=== PATIENT | male | born 1990 | race American Indian/Alaskan Native ===

== ENCOUNTER 2018-12-12 11:03 | Emergency (ER) | payer MEDICAID, OTHER ==
[2018-12-12 11:12] VITALS: BMI 29.8
[2018-12-12 11:15] VITALS: BP 121/78; PULSE 81; RESP 18; TEMP 98; O2SAT 96
[2018-12-12] MEDS ORDERED: cefTRIAXone (Rocephin) 250 mg Inj IM STA (11:30)
--- NOTE | 2018-12-12 11:34 | ED PDOC ---
Arrival/HPI - General Historian: Patient - History of Present Illness Narrative History of Present Illness (Text): 12/12/18 11:35 28-year-old male presents today with penile discharge that started this morning. Patient states he woke up and he noticed a white discharge coming from the penis. He denies testicular pain. Denies fevers or chills. No dizziness or weakness. No abdominal pain. No nausea or vomiting. Patient states she has a history of STD in the past. Patient states he has a new sexual partner and states that the condom broke. Patient denies urinary frequency or dysuria. No other complaints <Svetlana Hercules - Last Filed: 12/12/18 17:00> <Malik Bermudez - Last Filed: 12/12/18 17:21> - General Chief Complaint: Male Genitourinary Time Seen by Provider: 12/12/18 11:05 Past Medical History - Provider Review Nursing Documentation Reviewed: Yes - Travel History Have you recently traveled outside [place] w/in the past 3 mons?: No - Infectious Disease Hx of Infectious Diseases: None - Psychiatric Hx Substance Use: Yes - Anesthesia Hx Anesthesia: No Hx Anesthesia Reactions: No Hx Malignant Hyperthermia: No <Svetlana Hercules - Last Filed: 12/12/18 17:00> Family/Social History - Physician Review Nursing Documentation Reviewed: Yes Family/Social History: Unknown Family HX Smoking Status: Heavy Smoker > 10 Cigarettes Daily Hx Alcohol Use: Yes Frequency of alcohol use: Socially Hx Substance Use: Yes Substance used: marijuana <Svetlana Hercules - Last Filed: 12/12/18 17:00> Allergies/Home Meds <Svetlana Hercules - Last Filed: 12/12/18 17:00> <Malik Bermudez - Last Filed: 12/12/18 17:21> Allergies/Adverse Reactions: Allergies No Known Allergies Allergy (Verified 12/12/18 11:12) Home Medications: Home Meds Medication Instructions Recorded Confirmed No Known Home Med 12/12/18 12/12/18 Review of Systems - Review of Systems Constitutional: absent: Fatigue, Fevers Respiratory: absent: SOB, Cough Cardiovascular: absent: Chest Pain, Palpitations Gastrointestinal: absent: Abdominal Pain, Nausea, Vomiting Genitourinary Male: Other (penile discharge). absent: Dysuria, Frequency, Hematuria, Urinary Output Changes Neurological: absent: Headache, Dizziness <Svetlana Hercules T - Last Filed: 12/12/18 17:00> Physical Exam Vital Signs Reviewed: Yes Vital Signs Temp Pulse Resp BP Pulse Ox 12/12/18 11:15 98.0 F 81 18 121/78 96 Temperature: Afebrile Blood Pressure: Normal Pulse: Regular Respiratory Rate: Normal Appearance: Positive for: Well-Appearing, Non-Toxic, Comfortable Pain Distress: None Mental Status: Positive for: Alert and Oriented X 3 - Systems Exam Head: Present: Atraumatic Mouth: Present: Moist Mucous Membranes Neck: Present: Normal Range of Motion Respiratory/Chest: Present: Clear to Auscultation, Good Air Exchange. No: Respiratory Distress, Accessory Muscle Use Cardiovascular: No: Regular Rate and Rhythm Abdomen: Present: Tenderness Genitourinary Male: Present: Normal External Genitalia, Circumcised Penis, Penile Discharge, Other (chapaonred by Serg KUMAR RN). No: Testicle Tenderness, Penile Swelling, Testicle Swelling, Prostate Tenderness Back: Present: Normal Inspection Neurological: Present: GCS=15, Speech Normal Skin: Present: Warm, Dry, Normal Color. No: Rashes Psychiatric: Present: Alert, Oriented x 3 <Svetlana Hercules T - Last Filed: 12/12/18 17:00> Vital Signs Temp Pulse Resp BP Pulse Ox 12/12/18 11:15 98.0 F 81 18 121/78 96 <Malik Bermudez - Last Filed: 12/12/18 17:21> Medical Decision Making ED Course and Treatment: 12/12/18 11:37 Patient is nontoxic well-appearing in no distress with stable vital signs Ceftriaxone 250 mg IM Zithromax 1 g p.o. given Gonorrhea and Chlamydia cultures are pending. Advised patient to refrain from sex for 10 days followup with the primary care physician within the next 2 days or return if symptoms worsen persist or if new symptoms develop. Impression: Urethritis Have all sexual partners tested and treated Follow-up the primary care physician within the next 2 days Return if symptoms worsen persist or if new concerning symptoms develop - Medication Orders Current Medication Orders: Azithromycin (Zithromax) 1,000 mg PO STAT STA; Protocol Stop: 12/12/18 11:31 Ceftriaxone Sodium (Rocephin) 250 mg IM STAT STA; Protocol Stop: 12/12/18 11:31 <JaileneSvetlana power - Last Filed: 12/12/18 17:00> - Medication Orders Current Medication Orders: Discontinued Medications Azithromycin (Zithromax) 1,000 mg PO STAT STA; Protocol Stop: 12/12/18 11:31 Last Admin: 12/12/18 11:48 Dose: 1,000 mg Ceftriaxone Sodium (Rocephin) 250 mg IM STAT STA; Protocol Stop: 12/12/18 11:31 Last Admin: 12/12/18 11:48 Dose: 250 mg IM Administration Charges Document 12/12/18 11:48 [place] (Rec: 12/12/18 11:49 [place] [facility] [id number]) Injection Site MAR Injection Site Left Arm Charges for Administration # of IM Administrations 1 <Malik Bermudez - Last Filed: 12/12/18 17:21> - PA / FAMILY HEALTH NURSE PRACTITIONER / Resident Statement MD/DO has reviewed & agrees with the documentation as recorded. <Malik Bermudez - Last Filed: 12/12/18 17:21> Disposition/Present on Arrival - Present on Arrival Any Indicators Present on Arrival: No History of DVT/PE: No History of Uncontrolled Diabetes: No Urinary Catheter: No History of Decub. Ulcer: No History Surgical Site Infection Following: None - Disposition Have Diagnosis and Disposition been Completed?: Yes Disposition Time: 11:31 Patient Plan: Discharge <Svetlana Hercules - Last Filed: 12/12/18 17:00> <Malik Bermudez - Last Filed: 12/12/18 17:21> - Disposition Diagnosis: Urethritis Disposition: HOME/ ROUTINE Condition: GOOD Discharge Instructions (ExitCare): Urethritis (DC) Additional Instructions: Have all sexual partners tested and treated. Follow up primary care physician within the next 2 days Return if symptoms worsen persist or if new symptoms develop. Referrals: Loreta Rosenbaum MD [Medical Doctor] - Follow up with primary [facility] [Outside] - Follow up with primary Forms: [employer] (Ind[place]ian), WORK NOTE
== END 2018-12-12 12:18 | disposition home or self-care (01) ==
LOC: ED 11:03
DX: N34.2 Other urethritis (principal)
CPT/HCPCS: 87491; 87591; 96372; 99283; J0696